=== PATIENT | male | born 1945 | race Caucasian/White ===

== ENCOUNTER 2018-04-04 12:30 | Inpatient (IN) | payer MEDICARE ==
[~2018-04-04] VITALS: Ht 167.6 cm; Wt 63.3 kg
[2018-04-04 12:55] VITALS: BP 97/52
[2018-04-04] MEDS ORDERED: FAMO20TA5 PO (13:43)
[2018-04-04] MEDS ORDERED: FERR325T14 PO (13:43)
[2018-04-04] MEDS ORDERED: POTA20TA4 PO (13:43)
[2018-04-04] MEDS ORDERED: MAGN400T3 PO (13:43)
[2018-04-04] MEDS ORDERED: LISI10TA2 PO (13:43)
[2018-04-04] MEDS ORDERED: LEVO150T5 PO (13:43)
[2018-04-04] MEDS ORDERED: CARB15DR3 EACHEYE (13:43)
[2018-04-04] MEDS ORDERED: TAMS0.4C2 PO (13:43)
[2018-04-04] MEDS ORDERED: OLAN5TAB9 PO (13:43)
[2018-04-04] MEDS ORDERED: OMEP40CA5 PO (13:43)
[2018-04-04] MEDS ORDERED: SIMV20TA3 PO (13:43)
[2018-04-04 16:33] VITALS: BP 99/53
--- NOTE | 2018-04-07 19:06 | HP ---
ADMIT DATE: 04/04/2018 This is a late entry of 04/04/2018. I never did have an opportunity to see the patient but this note is being dictated to give a brief synopsis of circumstances of the patient's referral from the Emergency Room at [facility] after he presented to the ER at the [facility] with acute mental status changes from the half-way. He was also found with a cord wrapped around his neck, was depressed, suicidal. We were never told that he was active for C. diff prior to us accepting him, and we did accept him, but when he came to the unit, he was found to be C. diff positive. We were unable to hospitalize the patients with C. diff and he was sent right back to the [facility]. I never did get to see the patient, but I discussed with nursing staff on several occasions and this chart note is all I am able to generate as a synopsis. FINAL DIAGNOSES: Probable major neurocognitive disorder, Alzheimer, vascular with depression, Clostridium difficile positive. History reveals history of gastroesophageal reflux disease, hypertension, hyperlipidemia, hypothyroidism, has a suprapubic catheter in place and past history of schizophrenia. DISCHARGE MEDICATIONS: No different from admission and readers refer to the EMRAD for details. AZAEL PINTO MD DR: ANASTACIA/evelyn JOB#: [id number] / [id number]
== END 2018-04-04 15:50 | disposition short-term general hospital (02) | DRG 57 ==
LOC: GEROPSY 12:30
PROVIDERS: ADMIT Psychiatry & Neurology Psychiatry; ATTEND Psychiatry & Neurology Psychiatry
DX: G30.9 Alzheimer's disease, unspecified (principal); B96.89 Other specified bacterial agents as the cause of diseases classified elsewhere; F01.50 Vascular dementia, unspecified severity, without behavioral disturbance, psychotic disturbance, mood disturbance, and anxiety; F02.80 Dementia in other diseases classified elsewhere, unspecified severity, without behavioral disturbance, psychotic disturbance, mood disturbance, and anxiety; F32.9 Major depressive disorder, single episode, unspecified; K21.9 Gastro-esophageal reflux disease without esophagitis; I10 Essential (primary) hypertension; E03.9 Hypothyroidism, unspecified; E78.5 Hyperlipidemia, unspecified; F20.9 Schizophrenia, unspecified

== ENCOUNTER 2018-05-26 11:42 | Emergency (ER) | payer MEDICARE ==
[~2018-05-26 11:42] MED LIST: CARB15DR3 EACHEYE; FAMO20TA5 PO; FERR325T14 PO; LEVO150T5 PO; LISI10TA2 PO; MAGN400T3 PO; OLAN5TAB9 PO; OMEP40CA5 PO; POTA20TA4 PO; SIMV20TA3 PO; TAMS0.4C2 PO
[2018-05-26 12:32] LABS: BASO % 1 % (0-3); EOS # 0.3 x10^3/uL (0.0-0.7); EOS % 4 % (0-3); HEMATOCRIT 33.8 % (39.0-53.0); HEMOGLOBIN 11.4 g/dL (13.0-17.5); LYMPH # 2.2 x10^3/uL (1.0-4.8); LYMPH % 31 % (24-48); MEAN CORPUSCULAR HEMOGLOBIN 30 pg (25-35); MEAN CORPUSCULAR HGB CONC 34 g/dL (31-37); MEAN CORPUSCULAR VOLUME 89 fL (79-100); MONO # 0.6 x10^3/uL (0.0-1.1); MONO % 8 % (0-9); NEUT # 4.2 x10^3uL (1.8-7.7); NEUT % 57 % (31-73); PLATELET COUNT 296 x10^3/uL (140-400); RED BLOOD COUNT 3.82 x10^6/uL (4.30-5.70); RED CELL DISTRIBUTION WIDTH 17.1 % (11.5-14.5); WHITE BLOOD COUNT 7.4 x10^3/uL (4.0-11.0)
--- NOTE | 2018-05-26 12:33 | EKG ---
[address] [address] Test Date: 2018-05-26 Test Time: 12:27:08 Pat Name: GER CARDENAS Department: Room: Gender: M Safety Manager: : 1945 Requested By: JAH POMPA Order Number: [id number] Reading MD: Lior Sweet Measurements Intervals [place] Rate: 72 P: 144 KS: 172 QRS: -148 QRSD: 90 T: 160 QT: 398 QTc: 437 Interpretive Statements SINUS RHYTHM ABNORMAL RIGHT SUPERIOR AXIS DEVIATION QRS(T) CONTOUR ABNORMALITY CONSIDER ANTEROSEPTAL MYOCARDIAL DAMAGE CONSISTENT WITH HIGH LATERAL INFARCT AGE UNDETERMINED ABNORMAL ECG Electronically Signed On 05-27-2018 11:43:42 CDT by Lior Sweet
[2018-05-26 12:43] LABS: ALBUMIN 2.6 g/dL (3.4-5.0); ALBUMIN/GLOBULIN RATIO 0.7 (1.0-1.7); CALCIUM 8.6 mg/dL (8.5-10.1); CREATININE 0.9 mg/dL (0.7-1.3); GFR 82.5; POTASSIUM 4.3 mmol/L (3.5-5.1); TOTAL BILIRUBIN 0.5 mg/dL (0.2-1.0); TOTAL PROTEIN 6.3 g/dL (6.4-8.2)
[2018-05-26 13:30] LABS: BILIRUBIN,URINE NEG (NEG); CLARITY,URINE CLOUDY; COLOR,URINE AMBER; GLUCOSE,URINE NEG (NEG)
[2018-05-26 13:31] LABS: BACTERIA,URINE MOD /HPF (0-FEW); GRANULAR CASTS,URINE OCC /HPF; NITRITE,URINE NEG (NEG); RBC,URINE >40 /HPF (0-2); UROBILINOGEN,URINE 2 mg/dL (0.2 mg/dL)
[2018-05-26 13:32] LABS: HYALINE CASTS, URINE OCC /HPF
[2018-05-26 13:33] LABS: SQUAMOUS EPITHELIAL CELL,UR FEW /LPF
[2018-05-26] MEDS ORDERED: CIPROFLOXACIN HCL 500 MG TABLET PO ONE (14:30)
--- NOTE | 2018-05-26 15:39 | PHYS DOC ---
Past History Past Medical History: Anemia, Depression, GERD, Hypertension, Other Past Surgical History: Other Alcohol Use: None Drug Use: None Adult General Chief Complaint Chief Complaint: HALLUCINATIONS AUDIBLE/VISUAL HPI HPI Patient is a 72 year old male who is in by EMS from shelter for medical clearance for psych admission. intermediate staff reported that she had hallucination and had some bleeding around his neck without mentioning about hanging himself. Patient denies suicidal and homicidal ideation and hallucination. Patient is alert and oriented x 2. Review of Systems Review of Systems Constitutional: Denies fever or chills [] Eyes: Denies change in visual acuity, redness, or eye pain [] HENT: Denies nasal congestion or sore throat [] Respiratory: Denies cough or shortness of breath [] Cardiovascular: No additional information not addressed in HPI [] GI: Denies abdominal pain, nausea, vomiting, bloody stools or diarrhea [] : Denies dysuria or hematuria [] Musculoskeletal: Denies back pain or joint pain [] Integument: Denies rash or skin lesions [] Neurologic: Denies headache, focal weakness or sensory changes [] Endocrine: Denies polyuria or polydipsia [] All other systems were reviewed and found to be within normal limits, except as documented in this note. Current Medications Current Medications Current Medications Medications (Trade) Dose Ordered Sig/Adrian Start Time Stop Time Status Last Admin Dose Admin Ciprofloxacin (Cipro) 500 mg 1X ONCE 05/26/18 14:30 05/26/18 14:38 DC Allergies Allergies Allergies Coded Allergies Type Severity Reaction Last Updated Verified hydrochlorothiazide Allergy Unknown 04/04/18 Yes Physical Exam Physical Exam Constitutional: Well nourished, no acute distress, non-toxic appearance. [] HENT: Normocephalic, atraumatic. Eyes: PERRLA, EOMI, conjunctiva normal, no discharge. [] Neck: Normal range of motion, no tenderness, supple, no stridor. [] Cardiovascular:Heart rate regular rhythm, no murmur [] Lungs & Thorax: Bilateral breath sounds clear to auscultation [] Abdomen: Bowel sounds normal, soft, no tenderness, no masses, no pulsatile masses. [] Skin: Warm, dry, no erythema, no rash. [] Back: No tenderness, no CVA tenderness. [] Extremities: No tenderness, no cyanosis, no clubbing, ROM intact, no edema. [] Neurologic: Alert and oriented X 2, normal motor function, normal sensory function, no focal deficits noted. [] Psychologic: Affect normal, mood normal. [] Current Patient Data Vital Signs Vital Signs Date Time Temp Pulse Resp B/P (MAP) Pulse Ox O2 Delivery O2 Flow Rate FiO2 05/26/18 11:55 97.7 76 22 96 Room Air Lab Results Laboratory Tests Test 05/26/18 12:14 05/26/18 13:07 White Blood Count 7.4 x10^3/uL (4.0-11.0) Red Blood Count 3.82 x10^6/uL (4.30-5.70) L Hemoglobin 11.4 g/dL (13.0-17.5) L Hematocrit 33.8 % (39.0-53.0) L Mean Corpuscular Volume 89 fL (79-100) Mean Corpuscular Hemoglobin 30 pg (25-35) Mean Corpuscular Hemoglobin Concent 34 g/dL (31-37) Red Cell Distribution Width 17.1 % (11.5-14.5) H Platelet Count 296 x10^3/uL (140-400) Neutrophils (%) (Auto) 57 % (31-73) Lymphocytes (%) (Auto) 31 % (24-48) Monocytes (%) (Auto) 8 % (0-9) Eosinophils (%) (Auto) 4 % (0-3) H Basophils (%) (Auto) 1 % (0-3) Neutrophils # (Auto) 4.2 x10^3uL (1.8-7.7) Lymphocytes # (Auto) 2.2 x10^3/uL (1.0-4.8) Monocytes # (Auto) 0.6 x10^3/uL (0.0-1.1) Eosinophils # (Auto) 0.3 x10^3/uL (0.0-0.7) Basophils # (Auto) 0.0 x10^3/uL (0.0-0.2) Sodium Level 141 mmol/L (136-145) Potassium Level 4.3 mmol/L (3.5-5.1) Chloride Level 105 mmol/L (98-107) Carbon Dioxide Level 31 mmol/L (21-32) Anion Gap 5 (6-14) L Blood Urea Nitrogen 14 mg/dL (8-26) Creatinine 0.9 mg/dL (0.7-1.3) Estimated GFR (Cockcroft-Gault) 82.5 BUN/Creatinine Ratio 16 (6-20) Glucose Level 109 mg/dL (70-99) H Calcium Level 8.6 mg/dL (8.5-10.1) Magnesium Level 2.0 mg/dL (1.8-2.4) Total Bilirubin 0.5 mg/dL (0.2-1.0) Aspartate Amino Transferase (AST) 17 U/L (15-37) Alanine Aminotransferase (ALT) 17 U/L (16-63) Alkaline Phosphatase 64 U/L (46-116) Total Protein 6.3 g/dL (6.4-8.2) L Albumin 2.6 g/dL (3.4-5.0) L Albumin/Globulin Ratio 0.7 (1.0-1.7) L Urine Collection Type Unknown Urine Color [place] Urine Clarity Cloudy Urine pH 7.0 Urine Specific [place] 1.020 Urine Protein 30 mg/dl (NEG-TRACE) Urine Glucose (UA) Neg mg/dL (NEG) Urine Ketones (Stick) 15 mg/dL (NEG) Urine Blood Large (NEG) Urine Nitrite Neg (NEG) Urine Bilirubin Neg (NEG) Urine Urobilinogen Dipstick 2 mg/dL (0.2 mg/dL) Urine Leukocyte Esterase Trace (NEG) Urine RBC >40 /HPF (0-2) Urine WBC 11-20 /HPF (0-4) Urine Squamous Epithelial Cells Few /LPF Urine Bacteria Mod /HPF (0-FEW) Urine Hyaline Casts Occ /HPF Urine Granular Casts Occ /HPF Urine Mucus Slight /LPF EKG EKG EKG interpreted by me. EKG at 1237 showed normal sinus rhythm at rate of 72, right superior axis deviation, RVH, poor R-wave progress in anterior leads, no acute ST and T-wave abnormalities. Radiology/Procedures Radiology/Procedures [] Course & Med Decision Making Course & Med Decision Making Pertinent Labs studies reviewed. (See chart for details) evaluation of patient in ER showed 72-year-old male patient sent from shelter for medical clearance for psych admission regarding hallucination. Patient was calm and alert and oriented 2. Labs showed mild to moderate UTI and chronic anemia. On- call psychiatric Dr. Mayorga inform us at 1650 that he knows the patient well because of several admission to psychiatric unit and from shelter visits and he usually became confused and hallucinated with episodes of UTI and does not have criteria for psych admission at this time and he suggested to treat UTI and if not getting better after couple days return to have psych admission. Patient treated with 1 dose of Cipro in ER and prescription was Cipro was given. Dragon Disclaimer Dragon Disclaimer This electronic medical record was generated, in whole or in part, using a voice recognition dictation system. Departure Departure: Impression: Primary Impression: Medical clearance for psychiatric admission Additional Impressions: Urinary tract infection Anemia Hallucination Disposition: XFER SNF (Discharged to shelter at 1650) Condition: STABLE Referrals: PCP,NO (PCP) Patient Instructions: Urinary Tract Infection Additional Instructions: Drink plenty of liquids Follow-up with your primary care physician in 2-3 days Return to ER if not getting better Scripts Ciprofloxacin Hcl (CIPRO) 250 Mg Tablet 1 TAB PO BID, #14 TAB Prov: JAH POMPA MD 05/26/18 Problem Qualifiers JAH POMPA MD May 26, 2018 15:39
[2018-05-26 16:50] VITALS: BP 129/68
[2018-05-26] MEDS ORDERED: CIPR250T30 PO (16:58)
== END 2018-05-26 17:45 ==
LOC: ER 11:42
DX: Z00.8 Encounter for other general examination (principal); N39.0 Urinary tract infection, site not specified; D64.89 Other specified anemias; K21.9 Gastro-esophageal reflux disease without esophagitis; R44.3 Hallucinations, unspecified; I10 Essential (primary) hypertension; F32.9 Major depressive disorder, single episode, unspecified; Z88.8 Allergy status to other drugs, medicaments and biological substances
CPT/HCPCS: 36415; 80053; 81001; 83735; 85025; 87086; 93005; 99285

== ENCOUNTER 2018-07-21 09:36 | Emergency (ER) | payer MEDICARE ==
[~2018-07-21] VITALS: Ht 167.6 cm; Wt 62.1 kg
[~2018-07-21 09:36] MED LIST changes: +CIPR250T30 PO
[2018-07-21 10:57] LABS: BASO # 0.1 x10^3/uL (0.0-0.2); BASO % 1 % (0-3); EOS # 0.6 x10^3/uL (0.0-0.7); EOS % 10 % (0-3); HEMATOCRIT 34.5 % (39.0-53.0); HEMOGLOBIN 11.8 g/dL (13.0-17.5); LYMPH # 2.5 x10^3/uL (1.0-4.8); LYMPH % 40 % (24-48); MEAN CORPUSCULAR HEMOGLOBIN 31 pg (25-35); MEAN CORPUSCULAR HGB CONC 34 g/dL (31-37); MEAN CORPUSCULAR VOLUME 92 fL (79-100); MONO # 0.6 x10^3/uL (0.0-1.1); MONO % 9 % (0-9); NEUT # 2.5 x10^3uL (1.8-7.7); NEUT % 40 % (31-73); PLATELET COUNT 295 x10^3/uL (140-400); RED BLOOD COUNT 3.77 x10^6/uL (4.30-5.70); RED CELL DISTRIBUTION WIDTH 14.9 % (11.5-14.5); WHITE BLOOD COUNT 6.3 x10^3/uL (4.0-11.0)
--- NOTE | 2018-07-21 11:16 | EKG ---
[address] [address] Test Date: 2018-07-21 Test Time: 09:41:35 Pat Name: GER CARDENAS Department: Room: Gender: M Production Editor: : 1945 Requested By: BARBARA CARSON Order Number: [id number] Reading MD: Measurements Intervals [place] Rate: 71 P: 0 OR: 152 QRS: 99 QRSD: 84 T: 18 QT: 376 QTc: 413 Interpretive Statements SINUS RHYTHM RIGHTWARD AXIS OTHERWISE NORMAL ECG RI6.01 Unconfirmed report No previous ECG available for comparison
[2018-07-21 11:17] LABS: ALBUMIN 2.8 g/dL (3.4-5.0); ALBUMIN/GLOBULIN RATIO 0.7 (1.0-1.7); CALCIUM 8.6 mg/dL (8.5-10.1); CREATININE 0.8 mg/dL (0.7-1.3); GFR 94.2; MAGNESIUM 1.8 mg/dL (1.8-2.4); TOTAL BILIRUBIN 0.4 mg/dL (0.2-1.0); TOTAL PROTEIN 6.6 g/dL (6.4-8.2)
--- NOTE | 2018-07-21 11:22 | RAD ---
Acute abdominal series. 07/21/2018 10:27 AM Indication: POSSIBLE FOREIGN BODY INGESTION. Patient may or may not have swallowed a thumbtack Comparison Study: None available Discussion: No pneumothorax or pleural effusion is identified. No focal consolidative infiltrate is seen. Heart size appears to be normal. No gross pneumoperitoneum is identified. Mild gaseous distention of small bowel and noted. Rounded calcifications in the right upper quadrant consistent with cholelithiasis. No acute osseous changes are seen. Degenerative changes of the hips and spine noted. IMPRESSION: 1. No radiopaque foreign body is identified 2. Cholelithiasis Electronically signed by: Rafiq Rodriguez MD (07/21/2018 11:18 AM) [facility]
[2018-07-21] MEDS ORDERED: DULO60CA6 PO (12:10)
[2018-07-21] MEDS ORDERED: MIRT15TA3 PO (12:10)
[2018-07-21] MEDS ORDERED: ZIPR40CA2 PO (12:10)
[2018-07-21] MEDS ORDERED: DEXT1DRO8 OP (12:10)
[2018-07-21] MEDS ORDERED: NA P133E6 RC (12:14)
[2018-07-21] MEDS ORDERED: ACET500T68 PO (12:14)
[2018-07-21] MEDS ORDERED: BISA10SU2 RC (12:14)
[2018-07-21] MEDS ORDERED: VITS42.55 TP (12:14)
[2018-07-21] MEDS ORDERED: [UNRECOGNIZED DRUG - CODE] TP (12:14)
[2018-07-21] MEDS ORDERED: MAGN2400 PO (12:14)
--- NOTE | 2018-07-21 12:23 | ED.ADGEN ---
Past History Past Medical History: Anemia, Depression, GERD, Hypertension, Hypothyroid, Other Past Surgical History: Other Alcohol Use: None Drug Use: None Adult General Chief Complaint Chief Complaint Medical screening evaluation HPI HPI Patient is a 73 year old male who presents for medical screening exam. Patient resides at [facility] facility. Reportedly, patient made statements that he wanted to harm himself and ingest tacks. Patient denies any such attempt, but was referred to the emergency department for medical screening for possible psychiatric hospitalization. Patient has history of depression with psychotic features. Denies recent medical illness, denies pain complaint. Compliant with medications. Ate O 3.[] Review of Systems Review of Systems Review symptoms as per history of present illness. All other review symptoms are negative. All other systems were reviewed and found to be within normal limits, except as documented in this note. Allergies Allergies Allergies Coded Allergies Type Severity Reaction Last Updated Verified hydrochlorothiazide Allergy Unknown 04/04/18 Yes Physical Exam Physical Exam Constitutional: Well developed, well nourished, no acute distress, non-toxic appearance. [] HENT: Normocephalic, atraumatic, bilateral external ears normal, oropharynx moist, no oral exudates, nose normal. [] Eyes: PERRLA, EOMI, conjunctiva normal, no discharge. [] Neck: Normal range of motion. [] Cardiovascular:Heart rate regular rhythm, no murmur [] Lungs & Thorax: Bilateral breath sounds clear to auscultation [] Abdomen: Bowel sounds normal, soft, no tenderness. [] Skin: Warm, dry, no erythema, no rash. [] Back: No tenderness. [] Extremities: No tenderness, no edema. [] Neurologic: Alert and oriented X 3, normal motor function, normal sensory function, no focal deficits noted. [] Psychologic: Affect, flat, judgement normal, mood, currently denies SI or HI. No hallucinations or delusions. [] Current Patient Data Vital Signs Vital Signs Date Time Temp Pulse Resp B/P (MAP) Pulse Ox O2 Delivery O2 Flow Rate FiO2 07/21/18 11:12 98.0 79 18 98 Room Air Lab Results Laboratory Tests Test 07/21/18 10:40 07/21/18 12:24 White Blood Count 6.3 x10^3/uL (4.0-11.0) Red Blood Count 3.77 x10^6/uL (4.30-5.70) L Hemoglobin 11.8 g/dL (13.0-17.5) L Hematocrit 34.5 % (39.0-53.0) L Mean Corpuscular Volume 92 fL (79-100) Mean Corpuscular Hemoglobin 31 pg (25-35) Mean Corpuscular Hemoglobin Concent 34 g/dL (31-37) Red Cell Distribution Width 14.9 % (11.5-14.5) H Platelet Count 295 x10^3/uL (140-400) Neutrophils (%) (Auto) 40 % (31-73) Lymphocytes (%) (Auto) 40 % (24-48) Monocytes (%) (Auto) 9 % (0-9) Eosinophils (%) (Auto) 10 % (0-3) H Basophils (%) (Auto) 1 % (0-3) Neutrophils # (Auto) 2.5 x10^3uL (1.8-7.7) Lymphocytes # (Auto) 2.5 x10^3/uL (1.0-4.8) Monocytes # (Auto) 0.6 x10^3/uL (0.0-1.1) Eosinophils # (Auto) 0.6 x10^3/uL (0.0-0.7) Basophils # (Auto) 0.1 x10^3/uL (0.0-0.2) Sodium Level 141 mmol/L (136-145) Potassium Level 4.0 mmol/L (3.5-5.1) Chloride Level 107 mmol/L (98-107) Carbon Dioxide Level 29 mmol/L (21-32) Anion Gap 5 (6-14) L Blood Urea Nitrogen 19 mg/dL (8-26) Creatinine 0.8 mg/dL (0.7-1.3) Estimated GFR (Cockcroft-Gault) 94.2 BUN/Creatinine Ratio 24 (6-20) H Glucose Level 96 mg/dL (70-99) Calcium Level 8.6 mg/dL (8.5-10.1) Magnesium Level 1.8 mg/dL (1.8-2.4) Total Bilirubin 0.4 mg/dL (0.2-1.0) Aspartate Amino Transferase (AST) 14 U/L (15-37) L Alanine Aminotransferase (ALT) 15 U/L (16-63) L Alkaline Phosphatase 90 U/L (46-116) Total Protein 6.6 g/dL (6.4-8.2) Albumin 2.8 g/dL (3.4-5.0) L Albumin/Globulin Ratio 0.7 (1.0-1.7) L Urine Collection Type Unknown Urine Color Yellow Urine Clarity Cloudy Urine pH 7.0 Urine Specific [place] 1.020 Urine Protein Neg (NEG-TRACE) Urine Glucose (UA) Neg mg/dL (NEG) Urine Ketones (Stick) Neg mg/dL (NEG) Urine Blood Neg (NEG) Urine Nitrite Neg (NEG) Urine Bilirubin Neg (NEG) Urine Urobilinogen Dipstick 1 mg/dL (0.2 mg/dL) Urine Leukocyte Esterase Small (NEG) Urine RBC 1-2 /HPF (0-2) Urine WBC 11-20 /HPF (0-4) Urine Squamous Epithelial Cells Occ /LPF Urine Bacteria Mod /HPF (0-FEW) Urine Mucus Slight /LPF EKG EKG [EKG: reviewed] Radiology/Procedures Radiology/Procedures [] Course & Med Decision Making Course & Med Decision Making Pertinent Labs and Imaging studies reviewed. (See chart for details) [Patient is medically stable. Patient acknowledges making statements yesterday that he wanted to kill himself, but states that he has no such thoughts or plans to do so today. . When I offered admission to this hospital, he declines that stating he prefers to go back to his [facility]. [facility]. Patient agrees to sign a safety plan after leaving the emergency department. He is alert and oriented 3 and comprehends plan of care] Final Impression Final Impression [1. medical screening exam] Dragon Disclaimer Dragon Disclaimer This electronic medical record was generated, in whole or in part, using a voice recognition dictation system. BARBARA CARSON DO Jul 21, 2018 12:23
[2018-07-21 12:46] LABS: BACTERIA,URINE MOD /HPF (0-FEW); BILIRUBIN,URINE NEG (NEG); CLARITY,URINE CLOUDY; COLOR,URINE YELLOW; GLUCOSE,URINE NEG (NEG); NITRITE,URINE NEG (NEG); SQUAMOUS EPITHELIAL CELL,UR OCC /LPF; UROBILINOGEN,URINE 1 mg/dL (0.2 mg/dL)
[2018-07-21 15:12] VITALS: BP 125/64
== END 2018-07-21 15:35 | disposition home or self-care (01) ==
LOC: ER 09:36
DX: Z13.89 Encounter for screening for other disorder (principal); F32.9 Major depressive disorder, single episode, unspecified; K21.9 Gastro-esophageal reflux disease without esophagitis; I10 Essential (primary) hypertension; E03.9 Hypothyroidism, unspecified; Z86.2 Personal history of diseases of the blood and blood-forming organs and certain disorders involving the immune mechanism; Z88.8 Allergy status to other drugs, medicaments and biological substances
CPT/HCPCS: 36415; 74022; 80053; 81001; 83735; 84443; 85025; 87086; 93005; 99284

== ENCOUNTER 2021-05-30 21:05 | Observation (INO) | payer OTHER ==
[~2021-05-30] VITALS: Ht 167.6 cm; Wt 78.3 kg
[~2021-05-30 21:05] MED LIST changes: +ACET500T68 PO; +BISA10SU4 RC; +DEXT1DRO8 OP; +DULO60CA7 PO; +LISI10TA16 PO; -LISI10TA2 PO; +MAGN24003 PO; -MAGN400T3 PO; +MAGN400T48 PO; +MIRT-7 PO; +NA P133E6 RC; +OLAN5TAB67 PO; -OLAN5TAB9 PO; -OMEP40CA5 PO; +OMEP40CA7 PO; +POTA-121 PO; -POTA20TA4 PO; +SIMV20TA18 PO; -SIMV20TA3 PO; +VITS42.55 TP; +ZIPR40CA2 PO; +[UNRECOGNIZED DRUG - CODE] TP
[2021-05-30] MEDS ORDERED: PANTOPRAZOLE IV 40 MG VIAL. IVP ONE (21:15)
[2021-05-30] MEDS ORDERED: ONDANSETRON PF 4 MG/2 ML VIAL. IVP ONE (21:15)
[2021-05-30] MEDS ORDERED: IV NORMAL SALINE 1,000ML 1,000 ML IV ONE (21:15)
--- NOTE | 2021-05-30 21:24 | PHYS DOC ---
Past History Past Medical History: Anemia, Depression, GERD, Hypertension, Hypothyroid, Other Past Surgical History: Other Alcohol Use: None Drug Use: None General Adult EDM: Chief Complaint: HEMATEMESIS/VOMITING BLOOD HPI: HPI: 76-year-old male presents via EMS as a diversion from the [facility] for hematemesis. The patient was at his care facility this evening and had one episode of emesis with blood. It was reported to be coffee-ground like. The patient has been hospitalized at the [facility] in the past for hematemesis. The patient does not believe that they did any kind of procedure or surgery. He does complain of some mild crampy epigastric pain. He is tired and sleepy but has no other specific complaints. No reported fever. Review of Systems: Review of Systems: Constitutional: Denies fever or chills Eyes: Denies change in visual acuity HENT: Denies nasal congestion or sore throat Respiratory: Denies cough or shortness of breath Cardiovascular: Denies chest pain or edema GI: Mild epigastric abdominal pain, hematemesis. : Denies dysuria Musculoskeletal: Denies back pain or joint pain Integument: Denies rash Neurologic: Denies headache, focal weakness or sensory changes Endocrine: Denies polyuria or polydipsia Lymphatic: Denies swollen glands Psychiatric: Denies depression or anxiety Current Medications: Current Meds: Current Medications Medications (Trade) Dose Ordered Sig/Adrian Start Time Stop Time Status Last Admin Dose Admin Ondansetron HCl (Zofran) 4 mg 1X ONCE 05/30/21 21:15 05/30/21 21:16 DC Pantoprazole Sodium (Protonix Vial) 80 mg 1X ONCE 05/30/21 21:15 05/30/21 21:16 DC Sodium Chloride 1,000 ml @ 1,000 mls/hr 1X ONCE 05/30/21 21:15 05/30/21 22:14 Allergies: Allergies: Allergies Coded Allergies Type Severity Reaction Last Updated Verified hydrochlorothiazide Allergy Unknown 05/30/21 Yes Physical Exam: PE: Constitutional: Well developed, well nourished, no acute distress, non-toxic appearance. [] HENT: Normocephalic, atraumatic, bilateral external ears normal, oropharynx moist, no oral exudates, nose normal. [] Eyes: PERRLA, EOMI, conjunctiva normal, no discharge. [] Neck: Normal range of motion, no tenderness, supple, no stridor. [] Cardiovascular: Heart rate regular rhythm, no murmur [] Lungs & Thorax: Bilateral breath sounds clear to auscultation [] Abdomen: Bowel sounds normal, soft, no tenderness, no masses, no pulsatile masses. [] Skin: Warm, dry, no erythema, no rash. [] Back: No tenderness, no CVA tenderness. [] Extremities: No tenderness, no cyanosis, no clubbing, ROM intact, no edema. [] Neurologic: Alert and oriented X 3, sleepy but arousable, normal motor function, normal sensory function, no focal deficits noted. [] Psychologic: Affect normal, judgement normal, mood normal. [] EKG: EKG: [] Radiology/Procedures: Radiology/Procedures: [] Heart Score: C/O Chest Pain: N/A Risk Factors: Risk Factors: DM, Current or recent (<one month) smoker, HTN, HLP, family history of CAD, obesity. Risk Scores: Score 0 - 3: 2.5% MACE over next 6 weeks - Discharge Home Score 4 - 6: 20.3% MACE over next 6 weeks - Admit for Clinical Observation Score 7 - 10: 72.7% MACE over next 6 weeks - Early Invasive Strategies Course & Med Decision Making: Course & Med Decision Making Pertinent Labs and Imaging studies reviewed. (See chart for details) The patient's labs are significant for a white count of 18 and hemoglobin of 11. I have no recent previous for comparison. The patient has not had any further hematemesis in the ER. He does not have a fever. His heart rate is within normal limits. His blood pressure is 138/66. O2 saturation 93% on room air. I will admit the patient to the hospital for trending of his hemoglobin. He has been given 80 mg of Protonix IV. I spoke with Dr. Marshall and he has accepted the patient for admission. [] Maxi Disclaimer: Maxi Disclaimer: This electronic medical record was generated, in whole or in part, using a voice recognition dictation system. Departure Departure: Impression: Primary Impression: Hematemesis Qualified Codes: K92.0 - Hematemesis Disposition: ADMITTED INPATIENT Admitting Physician: Barrington Marshall Condition: STABLE Referrals: PCP,JASON (PCP) BARBARA ROSALES DO May 30, 2021 21:24
[2021-05-30] MEDS ORDERED: IV NORMAL SALINE 100ML 100 ML ONE (21:41)
[2021-05-30 22:00] LABS: CALCIUM 9.3 mg/dL (8.5-10.1); CREATININE 0.8 mg/dL (0.7-1.3); GFR 93.5; POTASSIUM 4.1 mmol/L (3.5-5.1)
[2021-05-30 22:01] LABS: BASO # 0.1 x10^3/uL (0.0-0.2); BASO % 1 % (0-3); EOS # 0.1 x10^3/uL (0.0-0.7); EOS % 0 % (0-3); HEMATOCRIT 32.9 % (39.0-53.0); LYMPH # 1.8 x10^3/uL (1.0-4.8); LYMPH % 10 % (24-48); MEAN CORPUSCULAR HEMOGLOBIN 31 pg (25-35); MEAN CORPUSCULAR HGB CONC 33 g/dL (31-37); MEAN CORPUSCULAR VOLUME 94 fL (79-100); MONO # 1.3 x10^3/uL (0.0-1.1); MONO % 7 % (0-9); NEUT # 15.3 x10^3uL (1.8-7.7); NEUT % 83 % (31-73); PLATELET COUNT 525 x10^3/uL (140-400); RED CELL DISTRIBUTION WIDTH 14.5 % (11.5-14.5); WHITE BLOOD COUNT 18.6 x10^3/uL (4.0-11.0)
[2021-05-30 22:06] LABS: ALBUMIN 2.9 g/dL (3.4-5.0); ALBUMIN/GLOBULIN RATIO 0.7 (1.0-1.7); TOTAL BILIRUBIN 0.6 mg/dL (0.2-1.0)
[2021-05-30 22:40] LABS: % BANDS 3 % (0-9); % BASOS 1 % (0-3); % EOS 1 % (0-5); % LYMPHS 10 % (24-48); % MONOS 6 % (0-10); % SEGS 79 % (35-66); PLT ESTIMATE INCREASED (ADEQUATE)
[2021-05-30] MEDS ORDERED: ONDANSETRON PF 4 MG/2 ML VIAL. IVP PRN (22:45)
--- NOTE | 2021-05-30 23:40 | NUR ---
ADMISSION: The patient, GER CARDENAS, 76 y/o, M admitted by LIANA AVALOS MD, was given written information regarding hospital policies, unit procedures and contact persons. Pt arrived to room 125 via gurney, accompanied by [facility] and ED RN. Pt here for Dx: hematemesis. Per [place] report, pt had one episode of coffee ground emesis earlier this evening. [facility] recently [facility] with same c/o and released approx. 3 weeks ago. Pt resides at [facility] in [place]. Pt has dementia, A/Ox1-2 only. Pt very sleepy at this time, rouses with shaking. Placed on 2L via NC to keep sats >92%. No current N/V. Pt incont of urine, brief changed x2 assist. Pt unable to verbalize understanding of POC. Bed in lowest position with call light in reach and bed alarmed for safety. Valuables were checked and logged. Pt only has a t-shirt with him. Left in room with pt.
[2021-05-31 00:24] VITALS: BP 100/62
[2021-05-31] MEDS ORDERED: TRAZ-120 PO (00:32)
[2021-05-31] MEDS ORDERED: DEXTROMETHORPHAN/GUA PO (00:32)
[2021-05-31] MEDS ORDERED: ACET325T21 PO (00:32)
[2021-05-31] MEDS ORDERED: POLY15DR5 EACHEYE (00:32)
[2021-05-31] MEDS ORDERED: CEPH500T PO (00:32)
[2021-05-31] MEDS ORDERED: LOPE2TAB27 PO (00:32)
[2021-05-31] MEDS ORDERED: LEVO125T5 PO (00:32)
[2021-05-31] MEDS ORDERED: MIRT30TA93 PO (00:32)
[2021-05-31] MEDS ORDERED: ASCO500C PO (00:32)
[2021-05-31] MEDS ORDERED: PANT40TA6 PO (00:32)
[2021-05-31 05:59] LABS: BASO # 0.1 x10^3/uL (0.0-0.2); BASO % 0 % (0-3); EOS # 0.4 x10^3/uL (0.0-0.7); EOS % 3 % (0-3); HEMATOCRIT 28.9 % (39.0-53.0); HEMOGLOBIN 9.6 g/dL (13.0-17.5); LYMPH # 3.1 x10^3/uL (1.0-4.8); LYMPH % 24 % (24-48); MEAN CORPUSCULAR HEMOGLOBIN 32 pg (25-35); MEAN CORPUSCULAR HGB CONC 33 g/dL (31-37); MEAN CORPUSCULAR VOLUME 95 fL (79-100); MONO % 8 % (0-9); NEUT % 64 % (31-73); PLATELET COUNT 395 x10^3/uL (140-400); RED BLOOD COUNT 3.04 x10^6/uL (4.30-5.70); RED CELL DISTRIBUTION WIDTH 14.3 % (11.5-14.5); WHITE BLOOD COUNT 12.5 x10^3/uL (4.0-11.0)
[2021-05-31 06:15] VITALS: BP 120/72
[2021-05-31] MEDS ORDERED: PANTOPRAZOLE 40 MG TABLET. PO SCH (08:00)
[2021-05-31] MEDS ORDERED: LEVOTHYROXINE 125 MCG TABLET PO SCH (08:00)
--- NOTE | 2021-05-31 08:31 | HP ---
DATE OF SERVICE: 05/31/2021 ADMIT DATE: 05/30/2021 ATTENDING PHYSICIAN: Dr. Marshall. CHIEF COMPLAINT: Hematemesis. HISTORY OF PRESENT ILLNESS: The patient is a 76-year-old gentleman, currently a resident at the [facility]. [facility]. He has no known documented hematemesis, 1 episode of emesis coffee-ground like appearance. He has no other symptoms. He is not in pain. He does have a history of gastroesophageal reflux disease. They tried to send him to the [facility], he got diverted. We do not have endoscopy here. He is hemodynamically stable. He will probably need EGD. Unfortunately, [facility] was full and could not accept him. We admitted him overnight for observation and followed up the hemoglobin in the morning. In the ED, his hemoglobin was 11 g/dL. PAST MEDICAL HISTORY: Significant for anemia of chronic disease, gastroesophageal reflux disease, major depression, schizoaffective disorder, bipolar disorder, hypertension, hypothyroidism and generalized debilitation. He is not on any nonsteroidal anti-inflammatory agents, nor is he on blood thinners. ALLERGIES: HE HAS ALLERGY TO HYDROCHLOROTHIAZIDE MEDICATIONS: Currently scheduled medicines from the shelter include the following: He was on scheduling Tylenol, ascorbic acid, bisacodyl, Cymbalta, ferrous sulfate, Synthroid, loperamide, magnesium, Remeron, Protonix, MiraLax, Flomax, trazodone and guaifenesin. SOCIAL HISTORY: He is a nonsmoker, nondrinker. FAMILY HISTORY: Unobtainable. REVIEW OF SYSTEMS: Unobtainable due to the patient's mentation. PHYSICAL EXAMINATION: GENERAL: When I saw him, this is a pleasant elderly gentleman who was very confused and lethargic. VITAL SIGNS: Initial vital signs showed a blood pressure of 141/74, pulse was 99 and regular, temperature 98.3 degrees Fahrenheit, oxygen saturation 91% on room air. HEENT: Head is without trauma. Pupils are reactive. Sclerae nonicteric. The oropharynx is clear. NECK: Supple, no bruits. LUNGS: Shallow respirations. CARDIOVASCULAR: Showed regular heart tones. ABDOMEN: Soft. EXTREMITIES: Without edema. NEUROLOGIC: Pleasantly confused, but responsive. SKIN: Warm and dry. PERTINENT LABORATORY STUDIES: His initial white count was 18,600, hemoglobin 11.0 g/dL. Electrolytes within normal range. Lactic acid normal. Transaminases were normal. Lipase was 49. ASSESSMENT: 1. A 76-year-old gentleman with a history of gastroesophageal reflux disease, has coffee-ground emesis. 2. Anemia of chronic disease. Blood counts have been stable. 3. Underlying bipolar disorder with schizoaffective disorder. 4. Generalized debilitation. 5. Hypertension. 6. Hypothyroidism, on replacement. PLAN: 1. Observation status. 2. Follow up CBC. 3. Continue home meds. 4. Because of the unavailability of endoscopy at [facility], will probably get him back to the shelter with tentative plans to get him scheduled there once a bed is available next week. REGINE DR: Reba TID: [id number]
[2021-05-31] MEDS ORDERED: DULoxetine HCL 60 MG CAPSULE.DR PO SCH (09:00)
[2021-05-31 11:37] VITALS: BP 183/79
--- NOTE | 2021-05-31 12:18 | DS ---
DATE OF DISCHARGE: 05/31/2021 ATTENDING PHYSICIAN: Dr. Marshall. FINAL DISCHARGE DIAGNOSES: 1. Hematemesis. 2. Coffee-ground emesis. 3. Anemia of chronic disease. 4. Underlying bipolar disorder and schizoaffective disorder. 5. Generalized debilitation. 6. Essential hypertension. 7. Hypothyroidism, on replacement. HISTORY AND PHYSICAL: The patient is a 76-year-old gentleman. [facility], but also is staying at [facility]. The nursing staff noticed vomiting with coffee-ground emesis. He had guaiac positive hematemesis. He was sent to the [facility]. He got diverted to our facility for further evaluation. Admission hemoglobin was 11.0 g/dL. We do not have Gastroenterology available for staffing. [facility] is full. He was admitted here overnight for further evaluation and possibly getting into the [facility]. PHYSICAL EXAMINATION: Please see the dictated note. PERTINENT LABORATORY AND X-RAY STUDIES: Admission hemoglobin was 11.0 g/dL. With hydration and dilution, the next day it came down to 9.6 g/dL. White count was 12,500. Electrolytes within normal range. Creatinine 0.8 mg percent. Transaminases normal. Lipase level is 49. COURSE IN THE HOSPITAL: The patient was admitted overnight for observation. Blood pressure was stable. Followup hemoglobin was slightly diminished. He had no symptoms. Arrangements were then made on the second hospital day for the patient to go to the [facility]. They do have GI and endoscopy services available, Dr. Fernando Jolly is a it compliance analyst there. I spoke with their hospitalist in the process of getting a bed. He is discharged then from our hospital to go to the [facility], where he is an established patient. His home meds are unchanged and he is not on any anticoagulation, which is fortunate. His discharge meds include the following: They will continue his Tylenol, ascorbic acid, bisacodyl, cephalexin, Cymbalta, ferrous sulfate, Synthroid, loperamide p.r.n., magnesium, Remeron, Protonix, polyvinyl alcohol tears, Flomax, and ____ doses unchanged. He is a DNR per advanced directives. The patient was then discharged from our hospital to go across the street to the [facility] for further evaluation and endoscopy. Total discharge time spent 38 minutes. KLAUDIA/EDIN/ZAC DAVALOS: KLAUDIA/evelyn MACIAS: 05/31/2021 10:39 TID: [id number]
[2021-05-31 16:09] VITALS: BP 106/63
--- NOTE | 2021-05-31 16:09 | NUR ---
PT SLEPT ALL DAY. HAD NO EPISODES OF NAUSEA OR VOMITING. PT WAITING ON BED AT [facility]. PT HAS NOT C/O PAIN.
[2021-05-31] MEDS ORDERED: traZODone 50 MG TABLET. PO SCH (21:00)
[2021-05-31] MEDS ORDERED: FERROUS SULFATE 325 MG TABLET. PO SCH (21:00)
[2021-05-31] MEDS ORDERED: MIRTAZAPINE ODT 30 MG TAB.RAPDIS. PO SCH (21:00)
[2021-05-31] MEDS ORDERED: TAMSULOSIN 0.4 MG CAP.ER.24H. PO SCH (21:00)
== END 2021-05-31 19:20 | disposition short-term general hospital (02) ==
LOC: ER 21:05 → 1 SOUTH 22:58 → INTOOBSV 22:58
PROVIDERS: ADMIT Hospitalist; ATTEND Hospitalist
DX: K92.0 Hematemesis (principal); Z20.822 Contact with and (suspected) exposure to COVID-19; K21.9 Gastro-esophageal reflux disease without esophagitis; D63.1 Anemia in chronic kidney disease; F31.9 Bipolar disorder, unspecified; R53.81 Other malaise; I10 Essential (primary) hypertension; E03.9 Hypothyroidism, unspecified; F20.9 Schizophrenia, unspecified; Z66 Do not resuscitate
CPT/HCPCS: 36415; 80053; 83605; 83690; 85007; 85025; 86850; 86900; 86901; 87426; 96361; 96374; 96375; 99284; C9113; G0378; J2405; J7030; U0003; G0379

== ENCOUNTER 2021-06-24 23:00 | Emergency (ER) | payer MEDICARE, OTHER ==
[~2021-06-24] VITALS: Ht 167.6 cm; Wt 82.1 kg
[~2021-06-24 23:00] MED LIST changes: +ACET325T21 PO; +ASCO500C PO; +CEPH500T PO; +DEXTROMETHORPHAN/GUA PO; +LEVO125T5 PO; +LOPE2TAB27 PO; +MIRT30TA93 PO; +PANT40TA6 PO; +POLY15DR5 EACHEYE; +TRAZ-120 PO
--- NOTE | 2021-06-24 23:09 | PHYS DOC ---
Past History Past Medical History: Anemia, Depression, GERD, Hypertension, Hypothyroid, Other Past Surgical History: Other Alcohol Use: None Drug Use: None Adult General Chief Complaint Chief Complaint: HEMATEMESIS/VOMITING BLOOD HPI HPI Patient is a 76-year-old male presents to the emergency department with a chief complaint of vomiting blood, dark in color which started earlier today and had one episode. States he was in the hospital recently for the same thing. States he is having some generalized abdominal discomfort, 5 out of 10, dull and achy in nature. Denies any blood in the stool. Denies any headache, changes in vision, neck pain, chest pain, shortness of breath, hematuria, dysuria, diarrhea. Review of Systems Review of Systems Review of systems otherwise unremarkable except noted in HPI Allergies Allergies Allergies Coded Allergies Type Severity Reaction Last Updated Verified hydrochlorothiazide Allergy Unknown 06/24/21 Yes Physical Exam Physical Exam Constitutional: Well developed, well nourished, no acute distress, non-toxic appearance. [] HENT: Normocephalic, atraumatic, bilateral external ears normal, oropharynx moist, no oral exudates, nose normal. [] Eyes: PERRLA, EOMI, conjunctiva normal, no discharge. [] Neck: Normal range of motion, no tenderness, supple, no stridor. [] Cardiovascular:Heart rate regular rhythm, no murmur [] Lungs & Thorax: Bilateral breath sounds clear to auscultation [] Abdomen: soft, no tenderness, no masses, no pulsatile masses. Rectal exam: Patient has some dark stool at the rectum with no pain or tenderness [] Skin: Warm, dry, no erythema, no rash. [] Back: no CVA tenderness. [] Extremities: No tenderness, no cyanosis, no clubbing, ROM intact, no edema. [] Neurologic: Alert and oriented X 3, normal motor function, normal sensory function, no focal deficits noted. [] Psychologic: Affect normal, judgement normal, mood normal. [] EKG EKG [] Radiology/Procedures Radiology/Procedures [] Impression: 1. Moderate size hiatal hernia with gastroesophageal reflux. 2. Moderate wall thickening of the mid to distal thoracic esophagus. This is likely esophagitis although an adenocarcinoma is possible. 3. Patchy reticular opacities in lung bases likely chronic pulmonary fibrosis. End Impression CT OF THE ABDOMEN AND PELVIS WITH IV CONTRAST: The rectal vault is distended with air and stool. There is moderate sigmoid diverticulosis without surrounding inflammation. The appendix is not well seen. There are numerous stones in the gallbladder but no wall thickening or surrounding fluid. Liver: Unremarkable Spleen: Unremarkable Pancreas: Atrophic Adrenal Glands: Unremarkable Kidneys: 5.6 cm simple cyst arising from the upper pole of the left kidney Evaluation of stomach and bowel is limited without oral contrast. Lymphadenopathy: no. Free fluid: no. Free air: no. The bladder there is a 2.6 cm stone in the urinary bladder. There is mild to moderate wall thickening of the urinary bladder. The prostate is not well seen and could be small. There is a fluid collection in the left inguinal canal that measures 4.8 x 4.6 cm and has surrounding inflammation.. Impression: 1. Stone in the urinary bladder. 2. Mild wall thickening the urinary bladder eccentric to the left recommend correlation with urinary analysis. 3. Complex fluid collection in the left groin at the inguinal canal could be a seroma from a procedure. 4. Fecal impaction. 5. Cholelithiasis without evidence of acute cholecystitis. Heart Score C/O Chest Pain: No Risk Factors: Risk Factors: DM, Current or recent (<one month) smoker, HTN, HLP, family history of CAD, obesity. Risk Scores: Risk Factors: DM, Current or recent (<one month) smoker, HTN, HLP, family history of CAD, obesity. Course & Med Decision Making Course & Med Decision Making Patient is a 76-year-old male who presents to the emergency department with a chief complaint of hematemesis Vital signs notable for sinus tachycardia. Physical exam noted above. Patient placed on the monitor with IV access established. Started on Protonix. Given Rocephin for current UTI the patient is being treated for. EKG with a rate of 112, QRS of 64, QTc of 4 63, A. fib with PVCs but no STEMI. Troponin normal. Laboratory analysis notable for neutrophilic leukocytosis and normocytic anemia. Imaging of chest abdomen and pelvis with moderate hiatal hernia, findings suggestive of esophagitis although an adeno carcinoma is possible. Also notable for patchy reticular opacities likely chronic pulmonary fibrosis, mild wall thickening of the urinary bladder which does correlate with his current UTI c holelithiasis and significant amount of stool. Dragon Disclaimer Dragon Disclaimer This electronic medical record was generated, in whole or in part, using a voice recognition dictation system. Departure Departure: Impression: Primary Impression: Hematemesis Additional Impressions: Upper GI bleed Normocytic anemia Leukocytosis UTI (urinary tract infection) Disposition: 02 SHORT TERM HOSPITAL Admitting Physician: Other Condition: STABLE Referrals: TRISTEN ORELLANA MD (PCP) Problem Qualifiers MERRITT LLOYD MD Jun 24, 2021 23:09
[2021-06-24] MEDS ORDERED: ONDANSETRON PF 4 MG/2 ML VIAL. IVP ONE (23:15)
[2021-06-24] MEDS ORDERED: PANTOPRAZOLE IV 80 MG in IV NORMAL SALINE 100ML 100 ML IV ONE (23:15)
[2021-06-24] MEDS ORDERED: IOHEXOL 300 MG/ML 75 ML VIAL. IV ONE (23:15)
[2021-06-24] MEDS ORDERED: CONTRAST GIVEN. MC PRN (23:15)
[2021-06-24] MEDS ORDERED: IV NORMAL SALINE 100ML 100 ML ONE (23:18)
[2021-06-24] MEDS ORDERED: PANTOPRAZOLE IV 40 MG VIAL. ONE (23:18)
[2021-06-24 23:41] LABS: BASO % 0 % (0-3); EOS # 0.5 x10^3/uL (0.0-0.7); EOS % 4 % (0-3); HEMATOCRIT 28.1 % (39.0-53.0); HEMOGLOBIN 9.2 g/dL (13.0-17.5); LYMPH # 1.9 x10^3/uL (1.0-4.8); LYMPH % 14 % (24-48); MEAN CORPUSCULAR HEMOGLOBIN 31 pg (25-35); MEAN CORPUSCULAR HGB CONC 33 g/dL (31-37); MEAN CORPUSCULAR VOLUME 93 fL (79-100); MONO # 0.9 x10^3/uL (0.0-1.1); MONO % 6 % (0-9); NEUT # 10.5 x10^3uL (1.8-7.7); NEUT % 76 % (31-73); PLATELET COUNT 350 x10^3/uL (140-400); RED BLOOD COUNT 3.02 x10^6/uL (4.30-5.70); RED CELL DISTRIBUTION WIDTH 14.2 % (11.5-14.5); WHITE BLOOD COUNT 13.8 x10^3/uL (4.0-11.0)
[2021-06-24 23:49] LABS: CALCIUM 8.6 mg/dL (8.5-10.1); CREATININE 0.9 mg/dL (0.7-1.3); GFR 81.6; POTASSIUM 3.9 mmol/L (3.5-5.1)
--- NOTE | 2021-06-24 23:52 | EKG ---
[address] [address] Test Date: 2021-06-24 Test Time: 23:45:15 Pat Name: GER CARDENAS Department: Room: Gender: M Moving Worker: KAITLYN : 1945 Requested By: MERRITT LLOYD Order Number: [id number] Reading MD: Jovon Corcoran MD Measurements Intervals [place] Rate: 106 P: 29 OK: 160 QRS: -37 QRSD: 78 T: 60 QT: 328 QTc: 437 Interpretive Statements SINUS TACHYCARDIA LAD Electronically Signed On 06-25-2021 13:39:25 DIRECTOR GAME by Jovon Corcoran MD
[2021-06-25 00:04] LABS: ALBUMIN 2.7 g/dL (3.4-5.0); ALBUMIN/GLOBULIN RATIO 0.9 (1.0-1.7); TOTAL BILIRUBIN 0.3 mg/dL (0.2-1.0); TOTAL PROTEIN 5.8 g/dL (6.4-8.2)
--- NOTE | 2021-06-25 00:36 | RAD ---
CT chest abdomen and pelvis with contrast: History: Abdominal pain and hematemesis Axial helical images of the chest abdomen and pelvis were obtained after the administration of 75 cc IV Omni 300 contrast. Comparison: none CT OF THE CHEST WITH IV CONTRAST: There is mild patchy reticular opacities in the lung bases. There is a moderate size hiatal hernia an d there is moderate wall thickening of the mid to distal esophagus and there is air and fluid in the esophagus. There is multiple mildly enlarged mediastinal lymph nodes. Thoracic aorta: normal Lungs and pleural margins: clear Impression: 1. Moderate size hiatal hernia with gastroesophageal reflux. 2. Moderate wall thickening of the mid to distal thoracic esophagus. This is likely esophagitis altho ugh an adenocarcinoma is possible. 3. Patchy reticular opacities in lung bases likely chronic pulmonary fibrosis. End Impression CT OF THE ABDOMEN AND PELVIS WITH IV CONTRAST: The rectal vault is distended with air and stool. There is moderate sigmoid diverticulosis without moreira rrounding inflammation. The appendix is not well seen. There are numerous stones in the gallbladder but no wall thickening or surrounding fluid. Liver: Unremarkable Spleen: Unremarkable Pancreas: Atrophic Adrenal Glands: Unremarkable Kidneys: 5.6 cm simple cyst arising from the upper pole of the left kidney Evaluation of stomach and bowel is limited without oral contrast. Lymphadenopathy: no. Free fluid: no. Free air: no. The bladder there is a 2.6 cm stone in the urinary bladder. There is mild to moderate wall thickening of the urinary bladder. The prostate is not well seen and could be small. There is a fluid collection in the left inguinal ca nal that measures 4.8 x 4.6 cm and has surrounding inflammation.. Impression: 1. Stone in the urinary bladder. 2. Mild wall thickening the urinary bladder eccentric to the left recommend correlation with urinary analysis. 3. Complex fluid collection in the left groin at the inguinal canal could be a seroma from a procedur e. 4. Fecal impaction. 5. Cholelithiasis without evidence of acute cholecystitis. End impression PQRS Compliance Statement: One or more of the following individualized dose reduction techniques were utilized for this examinat ion: 1. Automated exposure control 2. Adjustment of the mA and/or kV according to patient size 3. Use of iterative reconstruction technique Electronically signed by: Chilo Delacruz III, MD (06/25/2021 12:34 AM) [facility]
[2021-06-25 01:06] LABS: FECAL OB PT NEGATIVE (NEG)
[2021-06-25] MEDS ORDERED: IV NORMAL SALINE 50ML 50 ML ONE ×2 (01:24→01:28)
[2021-06-25] MEDS ORDERED: cefTRIAXone SODIUM 1 GM VIAL ONE ×2 (01:24→01:29)
[2021-06-25] MEDS ORDERED: ONDANSETRON PF 4 MG/2 ML VIAL. IVP ONE (02:15)
[2021-06-25 02:18] LABS: GASTRIC OB PAT POSITIVE (NEG)
[2021-06-25 03:00] VITALS: BP 141/77
== END 2021-06-25 03:18 | disposition short-term general hospital (02) ==
LOC: ER 23:00
DX: K92.2 Gastrointestinal hemorrhage, unspecified (principal); K92.0 Hematemesis; D64.9 Anemia, unspecified; D72.829 Elevated white blood cell count, unspecified; N39.0 Urinary tract infection, site not specified; K21.9 Gastro-esophageal reflux disease without esophagitis; I10 Essential (primary) hypertension; E03.9 Hypothyroidism, unspecified; Z20.822 Contact with and (suspected) exposure to COVID-19; Z86.2 Personal history of diseases of the blood and blood-forming organs and certain disorders involving the immune mechanism; Z88.8 Allergy status to other drugs, medicaments and biological substances
CPT/HCPCS: 36415; 71260; 74177; 80053; 82271; 82274; 83605; 83690; 84484; 85025; 85610; 85730; 86850; 86900; 86901; 87426; 93005; 96365; 96366; 96368; 96375; 96376; 99285; C9113; C9803; J0696; J2405; J3010; Q9967; U0003